=== PATIENT | male | born 1990 | race Caucasian/White ===

== ENCOUNTER 2017-11-04 17:04 | Emergency (ER) | payer SELFPAY ==
[~2017-11-04] VITALS: Ht 172.7 cm; Wt 127.5 kg
[2017-11-04 17:19] VITALS: Ht 172.7 cm; Wt 127.5 kg
[2017-11-04 19:46] VITALS: BP 144/91
== END 2017-11-04 19:46 | disposition home or self-care (01) ==
LOC: ED 17:04
DX: S40.012A Contusion of left shoulder, initial encounter (principal); S20.212A Contusion of left front wall of thorax, initial encounter; Z88.0 Allergy status to penicillin; V49.9XXA Car occupant (driver) (passenger) injured in unspecified traffic accident, initial encounter; Y93.89 Activity, other specified; Y92.89 Other specified places as the place of occurrence of the external cause; Y99.8 Other external cause status